=== PATIENT | female | born 1990 | race Caucasian/White ===

== ENCOUNTER 2020-09-30 01:10 | Inpatient (IN) ==
[2020-09-30] MEDS ORDERED: OXYTOCIN 30 UNITS/500 ML BAG IV PRN ×3 (01:58→23:12)
--- NOTE | 2020-09-30 02:13 | History & Physical Report ---
Date of Service September 30, 2020 Assessment & Plan (1) Supervision of normal first : 30 y/o G1 at 39 6/7 wga w/ SROM VSS stable Fetus cat 2, but due to pt feeling lightheaded/dizzy most likely. Resolved with repositioning and O2, continue to monitor Labor - discussed expectant management vs augmenting with pitocin to start, pt would like to start pitocin. GBS neg Epidural PRN, would like to try stadol at first so that she does not have to stay in bed for duration of labor History of Present Illness Primary Care Provider: NO PCP 30 y/o G1 at 39 6/7 wga w/ CARLOS 10/01/20 by LMP 12/26/19 presents w/ c/o LOF beginning around 1245AM. Pt has been terri irregularly over the last 24 hour, had noted they worsened last evening. She moved to try to get more comfortable with ctx and had large gush of fluid at that time. Continued to leak afterward. +FM and ctx, blood tinged mucous. PNI: PATRICIA from [place] at 24 wks Past [employer] Hx: G1, pt notes likely SAB at 5wks however did not see provider for it LMP 12/26/19 No hx abnl pap no hx STIs Allergies Allergy/AdvReac Type Severity Reaction Status Date / Time No Known Allergies Allergy Verified 09/25/20 09:49 Home Medications Medication Instructions Recorded Confirmed Type docosahexaenoic acid PO 06/14/20 09/25/20 History Patient History Medical History (Updated 09/30/20 @ 02:10 by Radha Stokes MD) No pertinent past medical history Surgical History History of wisdom tooth extraction Family History (Updated 09/30/20 @ 02:11 by Radha Stokes MD) Denies family history of Clotting disorder Social History Smoking Status: Never smoker Second Hand Exposure: No; Hx Alcohol Use: No Hx Substance Use: No Preferred Language: Honduran Communication Ability: Effective Electrician Yard Required: No Beliefs That Will Affect Care: None marital status: marital status details: Hiren (25) [phone] Current Living Situation: Spouse Current Living Situation Comment: lives with , no pets current occupational status: unemployed Other Information That Helps Us Care for You: No Feels Safe at Home: Yes Safety Concerns: Feels Safe At This Time Physical Exam Constitutional: WD/WN, vitals as above no acute distress Respiratory: normal respiratory effort; no respiratory distress and no labored breathing Genitourinary: OB Exam Abdomen: + vertex (confirmed by BSUS) and + estimated weight (6.5-7lbs) Manual OB Exam: + cervical dilation (1.5), + cervical effacement 70%, + station -2 and + amniotic fluid (+nitrazine, pooling, ferning) clear OB Exam Monitor Tracing: + external FHT monitor used, + external uterine monitor used and + category II (140/mod/+accel/+large decel noted on admission resolved with O2, reposition) Results & Data ([facility]) Vital Signs (Past 12 Hours) Vital Signs Temp Pulse Resp BP 09/30/20 01:27 99.0 F 18 09/30/20 01:25 90 128/71 Laboratory Results PNL: Blood Type & RH O+ Antibody Screen NEG HCT/HGB 37.5%/12.7 Platelets 296 Pap Test Negative Chlamydia Negative Gonorrhea Negative Rubella Immune RPR Non-reactive Urine Culture/Screen No growth HBsAg Negative -Hep C Ab Negative HIV Non-reactive MCV 91 Panorama (03/22/2020) Low risk female 07/12: Glucola-100 GBS neg COVID neg 09/18 ant plac Code Status & VTE Plan VTE Prophylaxis Plan VTE Prophylaxis will be ordered: Yes Coding Level of Care Code None Diagnoses Supervision of normal first Z34.00
[2020-09-30 02:28] LABS: Hematocrit (blood only) 32.5 % (37-47); Hemoglobin 11.3 g/dL (12.0-16.0); Mean Corpuscular Hemoglobin 32.2 pg (25-34); Mean Corpuscular Hgb Conc 34.8 g/dL (32-36); Mean Corpuscular Volume 92.6 fL (80-100); Mean Platelet Volume 9.2 fL (7.4-10.4); Platelet Count 218 K/uL (130-400); RDW Coefficient of Variation 12.8 % (11.5-14.5); RDW Standard Deviation 42.9 fL (36.4-46.3); Red Blood Count 3.51 M/uL (4.2-5.4); White Blood Count 13.72 K/uL (4.8-10.8)
[2020-09-30] MEDS: LACTATED RINGER'S 1,000 ML IV PRN ×4 (02:38→17:05)
[2020-09-30] MEDS ORDERED: SODIUM CHLORIDE 0.9% INJ 10 ML VIAL ONE (02:47)
[2020-09-30] MEDS ORDERED: ePHEDrine sulfate 50 MG/ML AMP ONE (02:47)
[2020-09-30] MEDS ORDERED: fentaNYL 2MCG/ML ROPIVACAINE 1.25MG/ML 100 ML BAG EPI ONE (02:48)
[2020-09-30] MEDS ORDERED: BUPIVACAINE 0.25% 30 ML VIAL ONE (02:48)
[2020-09-30] MEDS ORDERED: fentaNYL citrate 100 MCG/2 ML VIAL ONE ×2 (02:48→19:21)
[2020-09-30] MEDS ORDERED: ePHEDrine sulfate 50 MG/ML AMP IV PRN ×2 (03:15→19:07)
[2020-09-30] MEDS ORDERED: diphenhydrAMINE 50 MG/ML VIAL IV PRN (03:15)
[2020-09-30] MEDS ORDERED: NALOXONE HCL 1 MG in SODIUM CHLORIDE 0.9% 1000ML 1,000 ML IV PRN (03:15)
[2020-09-30] MEDS ORDERED: ONDANSETRON INJ 2 MG/ML 2 ML VIAL IV PRN ×2 (03:15→19:07)
[2020-09-30] MEDS ORDERED: NALOXONE HCL 0.4 MG/1 ML VIAL/CARP IV PRN (03:15)
--- NOTE | 2020-09-30 03:19 | Anesthesiology Consultation ---
Date of Service September 30, 2020 Covid 19 negative on 09/18/20. Assessment & Plan Chart Review Chart Review: Patient NOT seen in Pre Admission Testing and Acceptable Risk for Labor Epidural Consults Requested none ASA ASA2 Proposed Anesthesia Anesthesia Type: Labor Epidural and CSE Risk / Benefits Reviewed With: PT / POA / Parent / Guardian, Accepts Plan and Informed Consent Obtained History Height/Weight Height: 5 ft 4 in Weight: 73.482 kg Allergies Allergy/AdvReac Type Severity Reaction Status Date / Time No Known Allergies Allergy Verified 09/25/20 09:49 Medications Home Medications Medication Instructions Recorded Confirmed Last Taken no.144-folic acid 1 tab PO DAILY 09/30/20 09/30/20 09/29/20 [] Active Medications Generic Name Dose Route Start Last Admin Trade Name Freq PRN Reason Stop Dose Admin Lactated Ringer's 1,000 mls @ 125 mls/hr 09/30/20 01:58 09/30/20 02:38 Lr IV 10/02/20 01:57 999 mls/hr .Q8H PRN Administration L&D Protocol Protocol NPO Date Last Intake of Fluids: 09/29/20 Time Last Intake of Fluids: 23:59 Date Last Intake of Solids: 09/29/20 Time Last Intake of Solids: 23:59 Past Medical History Medical History No pertinent past medical history Exercise / Class Metabolic Activity II 4-5 Yardwork/Stairs/Walk up hill Past Family History Family History Denies family history of Clotting disorder Past Surgical History Surgical History History of wisdom tooth extraction Past Anesthesia History No Hx of Anesthesia Complications and No Family Hx of Anesthesia Complications History of PONV No Hx of PONV and No Hx of Motion Sickness Social History Smoking Status: Never smoker Hx Alcohol Use: No Hx Substance Use: No Review of Systems no chest pain or sob Physical Exam Vital Signs Last Vital Signs Temp 37.2 C 09/30/20 01:27 Pulse 96 H 09/30/20 03:15 Resp 18 09/30/20 01:27 BP 128/71 09/30/20 01:25 Pulse Ox 100 09/30/20 03:15 ENMT Mouth: no TMJ abnormality Thyromental Distance: > or= 3.5 Finger Breadths Mallampati Class: II Neck normal visual inspection Respiratory normal respiratory effort Auscultation: lungs clear to auscultation bilaterally Cardiovascular Rate/Rhythm: regular rate and regular rhythm Musculoskeletal Spine: normal cervical ROM Neurologic moves all extremities Psychiatric Orientation: alert and oriented x 3 Testing Laboratory Results 09/30/20 02:17
--- NOTE | 2020-09-30 07:37 | Labor Progress Brief Note ---
Date of Service September 30, 2020 Subjective Comfortable w/ epidural Assessment & Plan (1) Supervision of normal first : 30 y/o G1 at 39 6/7 wga w/ SROM VSS stable Fetus cat 1 Labor - pit per protocol, cont augmentation GBS neg Epidural in place Admission and Anticipated Discharge Date Admission Date: September 30, 2020 Physical Exam Constitutional: WD/WN, vitals as above no acute distress Respiratory: normal respiratory effort; no respiratory distress and no labored breathing Genitourinary: OB Exam Abdomen: + vertex (confirmed by BSUS) Manual OB Exam: + cervical dilation 4 cm, + cervical effacement 70% and + station -1 OB Exam Monitor Tracing: + external FHT monitor used, + external uterine monitor used (q3-5 min), + category I (135/mod/+accel/-decel) and + category II (140/mod/+accel/+large decel noted on admission resolved with O2, reposition) Results & Data ([facility]) Vital Signs (Past 12 Hours) Vital Signs Temp Pulse Resp BP Pulse Ox 09/30/20 07:32 74 97 09/30/20 07:30 76 92/49 L 09/30/20 07:27 76 97 09/30/20 07:22 73 97 09/30/20 07:17 79 98 09/30/20 07:16 82 98/54 L 09/30/20 07:12 111 H 98 09/30/20 07:07 75 99 09/30/20 07:02 99.0 F 88 20 100 09/30/20 07:01 82 98/49 L 09/30/20 06:57 76 96 09/30/20 06:52 74 96 09/30/20 06:47 71 98 09/30/20 06:45 78 97/56 L 09/30/20 06:42 72 96 09/30/20 06:37 71 97 09/30/20 06:32 72 98 09/30/20 06:30 77 98/53 L 09/30/20 06:27 72 95 09/30/20 06:22 74 96 09/30/20 06:17 72 96 09/30/20 06:16 74 95/52 L 09/30/20 06:12 71 96 09/30/20 06:07 74 97 09/30/20 06:02 71 96 09/30/20 06:01 72 92/50 L 09/30/20 05:57 68 96 09/30/20 05:52 70 96 09/30/20 05:47 71 95 09/30/20 05:45 72 98/59 L 09/30/20 05:42 65 95 09/30/20 05:40 57 L 94 09/30/20 05:37 47 L 98 09/30/20 05:32 105 H 98 09/30/20 05:30 98.6 F 79 18 96/55 L 09/30/20 05:27 93 H 96 09/30/20 05:23 79 94 09/30/20 05:22 81 94 09/30/20 05:17 76 95 09/30/20 05:15 82 95/51 L 94 09/30/20 05:12 77 96 09/30/20 05:07 80 97 09/30/20 05:02 77 97 09/30/20 04:57 81 95/51 L 97 09/30/20 04:52 79 97/52 L 96 09/30/20 04:47 78 98/54 L 97 09/30/20 04:42 80 94/51 L 96 09/30/20 04:38 76 97/51 L 09/30/20 04:37 86 96 09/30/20 04:32 76 91/48 L 97 09/30/20 04:31 88 94 09/30/20 04:27 81 92/52 L 96 09/30/20 04:22 92 H 98/55 L 96 09/30/20 04:17 88 96/50 L 96 09/30/20 04:14 79 94 09/30/20 04:12 84 94/54 L 95 09/30/20 04:07 83 103/55 L 95 09/30/20 04:02 99 H 99/52 L 97 09/30/20 03:57 80 105/51 L 97 09/30/20 03:54 90 98/51 L 09/30/20 03:52 83 96 09/30/20 03:47 83 97 09/30/20 03:46 88 102/51 L 09/30/20 03:44 75 110/55 L 09/30/20 03:42 84 108/53 L 97 09/30/20 03:41 97 H 119/55 L 09/30/20 03:38 86 126/56 L 09/30/20 03:37 94 H 128/58 L 98 09/30/20 03:34 82 94/53 L 09/30/20 03:33 80 99/51 L 09/30/20 03:32 77 99 09/30/20 03:30 98.4 F 86 117/67 09/30/20 03:27 103 H 98 09/30/20 03:22 122 H 99 09/30/20 03:15 96 H 100 09/30/20 01:27 99.0 F 18 09/30/20 01:25 99.0 F 90 18 128/71 Coding Level of Care Code None Diagnoses Supervision of normal first Z34.00
--- NOTE | 2020-09-30 10:16 | Labor Progress Brief Note ---
Date of Service September 30, 2020 Subjective Comfortable w/ epidural Assessment & Plan (1) Supervision of normal first : 30 y/o G1 at 39 6/7 wga w/ SROM VSS stable Fetus cat 1 Labor - pit per protocol, cont augmentation. Progressing nicely GBS neg Epidural in place Admission and Anticipated Discharge Date Admission Date: September 30, 2020 Physical Exam Constitutional: WD/WN, vitals as above no acute distress Respiratory: normal respiratory effort; no respiratory distress and no labored breathing Genitourinary: Manual OB Exam: + cervical dilation (5-6), + cervical effacement 90% and + station 0 OB Exam Monitor Tracing: + external FHT janny tor used, + external uterine monitor used (q3-5 min) and + category I (125/mod/+accel/-decel) Results & Data ([facility]) Vital Signs (Past 12 Hours) Vital Signs Temp Pulse Resp BP Pulse Ox 09/30/20 10:12 74 99 09/30/20 10:07 81 99 09/30/20 10:03 111 H 91/48 L 09/30/20 10:02 101 H 99 09/30/20 09:57 94 H 100 09/30/20 09:52 101 H 100 09/30/20 09:47 69 100 09/30/20 09:46 82 114/55 L 09/30/20 09:42 71 100 09/30/20 09:37 76 98 09/30/20 09:32 74 98 09/30/20 09:31 75 106/59 L 09/30/20 09:29 20 09/30/20 09:27 79 97 09/30/20 09:22 81 97 09/30/20 09:17 74 96 09/30/20 09:16 73 107/58 L 09/30/20 09:12 78 97 09/30/20 09:07 71 98 09/30/20 09:02 76 92/51 L 97 09/30/20 08:59 18 09/30/20 08:57 112 H 98 09/30/20 08:52 88 98 09/30/20 08:47 80 98 09/30/20 08:45 81 101/59 L 09/30/20 08:42 75 97 09/30/20 08:37 78 97 09/30/20 08:32 90 98/52 L 99 09/30/20 08:29 18 09/30/20 08:27 84 96 09/30/20 08:22 75 96 09/30/20 08:17 77 96 09/30/20 08:16 74 96/51 L 09/30/20 08:12 78 96 09/30/20 08:07 76 96 09/30/20 08:02 77 97 09/30/20 08:01 78 92/54 L 09/30/20 07:59 20 09/30/20 07:57 73 97 09/30/20 07:52 76 95 09/30/20 07:47 79 95 09/30/20 07:46 71 90/49 L 09/30/20 07:45 79 94 09/30/20 07:42 73 96 09/30/20 07:37 76 95 09/30/20 07:32 74 97 09/30/20 07:30 76 20 92/49 L 09/30/20 07:27 76 97 09/30/20 07:22 73 97 09/30/20 07:17 79 98 09/30/20 07:16 82 98/54 L 09/30/20 07:12 111 H 98 09/30/20 07:07 75 99 09/30/20 07:02 99.0 F 88 20 100 09/30/20 07:01 82 98/49 L 09/30/20 06:57 76 96 09/30/20 06:52 74 96 09/30/20 06:47 71 98 09/30/20 06:45 78 97/56 L 09/30/20 06:42 72 96 09/30/20 06:37 71 97 09/30/20 06:32 72 98 09/30/20 06:30 77 98/53 L 09/30/20 06:27 72 95 09/30/20 06:22 74 96 09/30/20 06:17 72 96 09/30/20 06:16 74 95/52 L 09/30/20 06:12 71 96 09/30/20 06:07 74 97 09/30/20 06:02 71 96 09/30/20 06:01 72 92/50 L 09/30/20 05:57 68 96 09/30/20 05:52 70 96 09/30/20 05:47 71 95 09/30/20 05:45 72 98/59 L 09/30/20 05:42 65 95 09/30/20 05:40 57 L 94 09/30/20 05:37 47 L 98 09/30/20 05:32 105 H 98 09/30/20 05:30 98.6 F 79 18 96/55 L 09/30/20 05:27 93 H 96 09/30/20 05:23 79 94 09/30/20 05:22 81 94 09/30/20 05:17 76 95 09/30/20 05:15 82 95/51 L 94 09/30/20 05:12 77 96 09/30/20 05:07 80 97 09/30/20 05:02 77 97 09/30/20 04:57 81 95/51 L 97 09/30/20 04:52 79 97/52 L 96 09/30/20 04:47 78 98/54 L 97 09/30/20 04:42 80 94/51 L 96 09/30/20 04:38 76 97/51 L 09/30/20 04:37 86 96 09/30/20 04:32 76 91/48 L 97 09/30/20 04:31 88 94 09/30/20 04:27 81 92/52 L 96 09/30/20 04:22 92 H 98/55 L 96 09/30/20 04:17 88 96/50 L 96 09/30/20 04:14 79 94 09/30/20 04:12 84 94/54 L 95 09/30/20 04:07 83 103/55 L 95 09/30/20 04:02 99 H 99/52 L 97 09/30/20 03:57 80 105/51 L 97 09/30/20 03:54 90 98/51 L 09/30/20 03:52 83 96 09/30/20 03:47 83 97 09/30/20 03:46 88 102/51 L 09/30/20 03:44 75 110/55 L 09/30/20 03:42 84 108/53 L 97 09/30/20 03:41 97 H 119/55 L 09/30/20 03:38 86 126/56 L 09/30/20 03:37 94 H 128/58 L 98 09/30/20 03:34 82 94/53 L 09/30/20 03:33 80 99/51 L 09/30/20 03:32 77 99 09/30/20 03:30 98.4 F 86 117/67 09/30/20 03:27 103 H 98 09/30/20 03:22 122 H 99 09/30/20 03:15 96 H 100 09/30/20 01:27 99.0 F 18 09/30/20 01:25 99.0 F 90 18 128/71 Coding Level of Care Code None Diagnoses Supervision of normal first Z34.00
[2020-09-30] MEDS: fentaNYL 2MCG/ML ROPIVACAINE 1.25MG/ML 100 ML BAG EPI PRN ×2 (10:44→16:03)
--- NOTE | 2020-09-30 13:22 | Labor Progress Brief Note ---
Date of Service September 30, 2020 Subjective Comfortable w/ epidural, feeling more pressure. Assessment & Plan (1) Supervision of normal first : 30 y/o G1 at 39 6/7 wga w/ SROM VSS stable Fetus cat 1 Labor - pit per protocol, cont augmentation. Will reposition to help ant lip GBS neg Epidural in place Admission and Anticipated Discharge Date Admission Date: September 30, 2020 Physical Exam Constitutional: WD/WN, vitals as above no acute distress Respiratory: normal respiratory effort; no respiratory distress and no labored breathing Genitourinary: OB Exam Abdomen: + vertex (confirmed by BSUS) Manual OB Exam: + cervical dilation (9.5 w/ anterior lip), + cervical effacement 90% and + station + 1 OB Exam Monitor Tracing: + external FHT monitor used, + external uterine monitor used (q3 min) and + category I (135/mod/+accel/-decel) Results & Data ([facility]) Vital Signs (Past 12 Hours) Vital Signs Temp Pulse Resp BP Pulse Ox 09/30/20 13:17 112 H 93 09/30/20 13:15 92 H 108/54 L 09/30/20 13:12 91 H 100 09/30/20 13:07 78 100 09/30/20 13:02 73 100 09/30/20 13:00 74 110/59 L 09/30/20 12:57 76 100 09/30/20 12:52 78 100 09/30/20 12:47 76 100 09/30/20 12:46 75 105/55 L 09/30/20 12:42 92 H 100 09/30/20 12:37 73 100 09/30/20 12:32 89 109/55 L 100 09/30/20 12:29 20 09/30/20 12:27 78 100 09/30/20 12:22 77 100 09/30/20 12:17 79 100 09/30/20 12:15 72 110/60 09/30/20 12:12 82 100 09/30/20 12:07 89 100 09/30/20 12:02 75 100 09/30/20 12:00 73 111/56 L 09/30/20 11:59 20 09/30/20 11:57 75 100 09/30/20 11:52 80 100 09/30/20 11:47 72 100 09/30/20 11:46 77 110/59 L 09/30/20 11:42 74 99 09/30/20 11:37 77 100 09/30/20 11:32 77 100 09/30/20 11:30 74 107/59 L 09/30/20 11:29 20 09/30/20 11:27 80 100 09/30/20 11:22 88 98 09/30/20 11:17 77 99 09/30/20 11:16 74 106/61 09/30/20 11:12 74 100 09/30/20 11:07 79 100 09/30/20 11:02 80 100 09/30/20 11:01 77 107/58 L 09/30/20 10:59 99.3 F 20 09/30/20 10:57 81 100 09/30/20 10:52 73 100 09/30/20 10:47 74 100 09/30/20 10:45 83 100/55 L 09/30/20 10:42 79 100 09/30/20 10:37 77 99 09/30/20 10:32 73 99 09/30/20 10:31 78 99/52 L 09/30/20 10:29 20 09/30/20 10:27 73 99 09/30/20 10:22 87 100 09/30/20 10:17 80 100 09/30/20 10:15 75 99/58 L 09/30/20 10:12 74 99 09/30/20 10:07 81 99 09/30/20 10:03 111 H 91/48 L 09/30/20 10:02 101 H 99 09/30/20 09:59 20 09/30/20 09:57 94 H 100 09/30/20 09:52 101 H 100 09/30/20 09:47 69 100 09/30/20 09:46 82 114/55 L 09/30/20 09:42 71 100 09/30/20 09:37 76 98 09/30/20 09:32 74 98 09/30/20 09:31 75 106/59 L 09/30/20 09:29 20 09/30/20 09:27 79 97 09/30/20 09:22 81 97 09/30/20 09:17 74 96 09/30/20 09:16 73 107/58 L 09/30/20 09:12 78 97 12/13/20 09:07 71 98 09/30/20 09:02 76 92/51 L 97 20 08:59 18 09/30/20 08:57 112 H 98 09/30/20 08:52 88 98 09/30/20 08:47 80 98 09/30/20 08:45 81 101/59 L 09/30/20 08:42 75 97 09/30/20 08:37 78 97 09/30/20 08:32 90 98/52 L 99 09/30/20 08:29 18 09/30/20 08:27 84 96 20 08:22 75 96 09/30/20 08:17 77 96 09/30/20 08:16 74 96/51 L 09/30/20 08:12 78 96 09/30/20 08:07 76 96 09/30/20 08:02 77 97 09/30/20 08:01 78 92/54 L 09/30/20 07:59 20 09/30/20 07:57 73 97 09/30/20 07:52 76 95 09/30/20 07:47 79 95 20 07:46 71 90/49 L 09/30/20 07:45 79 94 09/30/20 07:42 73 96 20 07:37 76 95 09/30/20 07:32 74 97 09/30/20 07:30 76 20 92/49 L 09/30/20 07:27 76 97 20 07:22 73 97 09/30/20 07:17 79 98 20 07:16 82 98/54 L 09/30/20 07:12 111 H 98 09/30/20 07:07 75 99 09/30/20 07:02 99.0 F 88 20 100 20 07:01 82 98/49 L 20 06:57 76 96 20 06:52 74 96 20 06:47 71 98 20 06:45 78 97/56 L 20 06:42 72 96 20 06:37 71 97 20 06:32 72 98 20 06:30 77 98/53 L 20 06:27 72 95 09/30/20 06:22 74 96 09/30/20 06:17 72 96 09/30/20 06:16 74 95/52 L 09/30/20 06:12 71 96 09/30/20 06:07 74 97 09/30/20 06:02 71 96 09/30/20 06:01 72 92/50 L 09/30/20 05:57 68 96 09/30/20 05:52 70 96 09/30/20 05:47 71 95 09/30/20 05:45 72 98/59 L 09/30/20 05:42 65 95 09/30/20 05:40 57 L 94 09/30/20 05:37 47 L 98 09/30/20 05:32 105 H 98 09/30/20 05:30 98.6 F 79 18 96/55 L 09/30/20 05:27 93 H 96 09/30/20 05:23 79 94 09/30/20 05:22 81 94 09/30/20 05:17 76 95 09/30/20 05:15 82 95/51 L 94 09/30/20 05:12 77 96 09/30/20 05:07 80 97 09/30/20 05:02 77 97 09/30/20 04:57 81 95/51 L 97 09/30/20 04:52 79 97/52 L 96 09/30/20 04:47 78 98/54 L 97 09/30/20 04:42 80 94/51 L 96 09/30/20 04:38 76 97/51 L 09/30/20 04:37 86 96 09/30/20 04:32 76 91/48 L 97 09/30/20 04:31 88 94 09/30/20 04:27 81 92/52 L 96 09/30/20 04:22 92 H 98/55 L 96 09/30/20 04:17 88 96/50 L 96 09/30/20 04:14 79 94 09/30/20 04:12 84 94/54 L 95 09/30/20 04:07 83 103/55 L 95 09/30/20 04:02 99 H 99/52 L 97 09/30/20 03:57 80 105/51 L 97 09/30/20 03:54 90 98/51 L 09/30/20 03:52 83 96 09/30/20 03:47 83 97 09/30/20 03:46 88 102/51 L 09/30/20 03:44 75 110/55 L 09/30/20 03:42 84 108/53 L 97 09/30/20 03:41 97 H 119/55 L 09/30/20 03:38 86 126/56 L 09/30/20 03:37 94 H 128/58 L 98 09/30/20 03:34 82 94/53 L 09/30/20 03:33 80 99/51 L 09/30/20 03:32 77 99 09/30/20 03:30 98.4 F 86 117/67 09/30/20 03:27 103 H 98 09/30/20 03:22 122 H 99 09/30/20 03:15 96 H 100 09/30/20 01:27 99.0 F 18 09/30/20 01:25 99.0 F 90 18 128/71 Coding Level of Care Code None Diagnoses Supervision of normal first Z34.00
[2020-09-30] MEDS ORDERED: MINERAL OIL 30 ML UDC ONE (17:22)
[2020-09-30] MEDS ORDERED: PHENYLEPHRINE 100MCG/ML 5ML SYR IV PRN (19:07)
[2020-09-30] MEDS ORDERED: HYDROmorphone INJ 1 MG/ML SYRINGE IV PRN (19:07)
[2020-09-30] MEDS ORDERED: ATROPINE SULFATE 0.1 MG/ML 10ML SYR IV PRN (19:07)
[2020-09-30] MEDS ORDERED: fentaNYL citrate 100 MCG/2 ML VIAL IV PRN (19:07)
[2020-09-30] MEDS ORDERED: LABETALOL HCL IV 5 MG/ML 20ML IV PRN (19:07)
--- NOTE | 2020-09-30 19:10 | Anesthesiology Consultation ---
Date of Service September 30, 2020 The patient is undergoing a cervical laceration repair in the OR. She is known to me as I placed her epidural prior to delivery. Assessment & Plan Chart Review Chart Review: Acceptable Risk for Surgery and Patient NOT seen in Pre Admission Testing Consults Requested none ASA ASA2 Proposed Anesthesia Anesthesia Type: MAC Epidural Risk / Benefits Reviewed With: PT / POA / Parent / Guardian, Accepts Plan and Informed Consent Obtained History Surgery Operation Date: 09/30/20 19:00 Proposed Procedures p Labor Delivery Repair Vaginal Laceration - Radha Stokes MD Height/Weight Height: 5 ft 4 in Weight: 73.482 kg Allergies Allergy/AdvReac Type Severity Reaction Status Date / Time No Known Allergies Allergy Verified 09/25/20 09:49 Medications Home Medications Medication Instructions Recorded Confirmed Last Taken no.144-folic acid 1 tab PO DAILY 09/30/20 09/30/20 09/29/20 [] Active Medications Generic Name Dose Route Start Last Admin Trade Name Freq PRN Reason Stop Dose Admin Oxytocin 30 units in 500 mls @ 333.333 mls/hr 09/30/20 01:58 09/30/20 18:30 Pitocin IV 10/30/20 01:57 Infused .Q1H30M PRN Titration Bleeding Control Protocol 20 UNITS/HR Lactated Ringer's 1,000 mls @ 125 mls/hr 09/30/20 01:58 09/30/20 19:03 Lr IV 10/02/20 01:57 125 mls/hr .Q8H PRN Infusion L&D Protocol Protocol Oxytocin 30 units in 500 mls @ 999 mls/hr 09/30/20 02:13 09/30/20 18:00 Pitocin IV 10/02/20 02:12 Infused .Q31M PRN Titration Labor Induction/Augmentation Protocol 59.94 UNITS/HR Ropivacaine 100 ml 09/30/20 03:15 09/30/20 16:03 Fentanyl 2mcg/Ml Ropivacaine 1.25mg/Ml 100 Ml Bag EPI 10/01/20 03:14 100 ml PRN PRN Administration Pain R/T Labor Protocol NPO Date Last Intake of Fluids: 09/29/20 Time Last Intake of Fluids: 23:59 Date Last Intake of Solids: 09/29/20 Time Last Intake of Solids: 23:59 Past Medical History Medical History No pertinent past medical history Exercise / Class Metabolic Activity II 4-5 Yardwork/Stairs/Walk up hill Past Family History Family History Denies family history of Clotting disorder Past Surgical History Surgical History History of wisdom tooth extraction Past Anesthesia History No Hx of Anesthesia Complications and No Family Hx of Anesthesia Complications Social History Smoking Status: Never smoker Hx Alcohol Use: No Hx Substance Use: No Review of Systems no chest pain or sob Physical Exam Vital Signs Last Vital Signs Temp 37.5 C 09/30/20 18:48 Pulse 76 09/30/20 19:07 Resp 18 09/30/20 19:03 BP 112/59 L 09/30/20 19:03 Pulse Ox 97 09/30/20 19:07 ENMT Mouth: no TMJ abnormality Thyromental Distance: > or= 3.5 Finger Breadths Mallampati Class: II Neck normal visual inspection Respiratory normal respiratory effort Auscultation: lungs clear to auscultation bilaterally Cardiovascular Rate/Rhythm: regular rate and regular rhythm Musculoskeletal Spine: normal cervical ROM Neurologic moves all extremities Psychiatric Orientation: alert and oriented x 3 Testing Laboratory Results 09/30/20 02:17
--- NOTE | 2020-09-30 19:13 | Delivery Summary ---
Vaginal Delivery Summary Date of Service September 30, 2020 Vaginal Delivery Summary PREOPERATIVE DIAGNOSIS: 1. Single intrauterine at 39 6/7 2. Spontaneous rupture of membranes POSTOPERATIVE DIAGNOSIS: 1. Single intrauterine at 39 6/7 2. Spontaneous rupture of membranes 3. Delivered PROCEDURE: 1. Normal spontaneous vaginal delivery. SURGEON: Radha Stokes MD ANESTHESIA: Epidural. ESTIMATED BLOOD LOSS: 400 mL FLUIDS: Continuous LR. URINE OUTPUT: None. COMPLICATIONS: None. CONDITION: Stable. INDICATIONS: 30 y/o G1 at 39 6/7 wga presented with spontaneous rupture of membranes. She opted for augmentation and so pitocin was initiated. She received an epidural for pain control. She then progressed to complete/complete/+2 station and desired to push. FINDINGS: A viable female weight pending, with Apgars of 2, 7, and 9 at 1, 5, and 10 minutes respectively. SPECIMEN: Cord gases. OPERATIVE REPORT: The patient progressed to 10 cm, 100% effaced and +2 station, pushed over intact perineum with anesthesia to deliver a viable female , weight and Apgars as above. Head of delivered in MARILYN position. No nuchal cord was present. Body and shoulders were delivered without difficulty. was noted to be nonvigorous on delivery and delayed cord clamping was deferred. Cord was clamped and cut and baby was handed off to awaiting nursery staff. Cord segment was obtained for gases, cord blood was unfortunately not obtained in the process. Placenta delivered spontaneously intact with 3-vessel cord. IV oxytocin and fundal massage were given for excellent hemostasis. Vagina, cervix, perineum, and placenta were inspected. A left vaginal/sulcal laceration was noted and repaired using 3-0 Vicryl in the usual fashion. There was noted to be continued bleeding and suspicion for a cervical laceration as uterine tone was excellent at this point. Anterior lip of the cervix was grasped with a ring forcep and attempted to be walked around the entirety. The area that was suspected to be the cause of bleeding was approximately the 5 o'clock position. 4-0 Vicryl was used to attempt to repair this area which did improve bleeding, however there was significant difficulty with visualization of the remainder of the cervix despite multiple assistants at the vagina and giving fundal. Decision was made to go to the OR for further evaluation of the cervix and possible further cervical laceration repair. Sponge and needle counts correct x2 in the delivery room. No sponges were left behind at conclusion of delivery. Patient was moved to the OR and placed in dorsal lithotomy position. Perineum and vagina were prepped using betadine. Straight catheterization was performed. A long weighted speculum and ocasio retractor were placed in the vagina. The cervix was visualized and grasped with a ring forcep. Multiple ring forceps were used to identify the entire cervix circumferentially. The previously placed stitch was identified and was hemostatic. There were no other areas of bleeding around the cervix. Remainder of the vagina and perineum were hemostatic. The patient tolerated further examination well. Mother and were stable in the immediate period [facility] Vaginal Delivery Charge Vaginal Delivery Codes: 29538 global code for the antepartum, delivery, and post-
[2020-09-30 19:26] LABS: Base Excess Cord Venous Blood -6.1 mEq/L (-7.7-1.9); CO2 Cord Arterial Blood 60 mmHg (39.1-73.5); Cord Venous Blood HCO3 20 mmol/L (18.4-26.8); Cord Venous Blood PCO2 39 mmHg (30.4-57.2); Cord Venous Blood PO2 21 mmHg (14.1-43.3); Cord Venous Blood pH 7.32 (7.20-7.44); HCO3 Cord Arterial Blood 21 mmol/L (19.7-28.5); O2 Saturation Cord Venous Bld < 60.0 % (<68); Oxygen Sat Cord Arterial Blood < 60.0 % (<60); PO2 Cord Arterial Blood 13 mmHg (4.1-31.7); pH Cord Arterial Blood 7.15 (7.1-7.38)
[2020-09-30] MEDS ORDERED: LIDOCAINE/EPINEPHRINE 2% 1:200,000 20 ML SDV ONE (19:37)
[2020-09-30] MEDS ORDERED: PROPOFOL IV EMULSION 10 MG/ML 20 ML VIAL IV ONE (19:37)
--- NOTE | 2020-09-30 19:50 | Anesthesiology Progress Note ---
Date of Service September 30, 2020 Anesthesia Post Procedure Vital Signs Vital Signs: Temp Pulse Resp BP Pulse Ox 09/30/20 19:44 74 107/53 L 98 09/30/20 19:07 76 97 09/30/20 19:03 64 18 112/59 L 09/30/20 19:02 66 97 09/30/20 18:57 69 99 09/30/20 18:52 66 97 09/30/20 18:48 37.5 C 69 20 112/57 L 09/30/20 18:47 69 98 09/30/20 18:42 67 99 09/30/20 18:37 70 99 09/30/20 18:33 68 110/56 L 09/30/20 18:32 66 100 09/30/20 18:27 64 99 09/30/20 18:22 69 99 09/30/20 18:18 68 117/59 L 09/30/20 18:17 72 99 09/30/20 18:12 72 98 09/30/20 18:07 67 96 09/30/20 18:03 65 120/58 L 09/30/20 18:02 68 96 09/30/20 17:57 72 95 09/30/20 17:52 71 96 09/30/20 17:47 70 94 09/30/20 17:42 73 96 09/30/20 17:37 72 96 09/30/20 17:32 83 95 09/30/20 17:27 83 96 09/30/20 17:22 82 97 09/30/20 17:21 81 110/59 L 09/30/20 17:17 82 165/119 H 96 09/30/20 17:16 79 92 09/30/20 17:12 76 96 09/30/20 17:07 87 92 09/30/20 17:02 79 94 09/30/20 17:01 86 115/56 L 09/30/20 17:00 100 H 91 09/30/20 16:59 20 09/30/20 16:57 93 H 93 09/30/20 16:53 87 93 09/30/20 16:52 96 H 96 09/30/20 16:48 103 H 91 09/30/20 16:47 89 96 09/30/20 16:42 117 H 93 09/30/20 16:37 83 94 12/13/20 16:36 93 H 94 20 16:32 88 109/55 L 95 20 16:30 101 H 93 20 16:29 37.9 C H 20 09/30/20 16:27 80 96 20 16:25 93 H 94 20 16:22 85 88 L 20 16:20 76 92 20 16:17 90 92 09/30/20 16:14 92 H 93 09/30/20 16:12 93 H 95 09/30/20 16:09 99 H 92 09/30/20 16:07 99 H 94 09/30/20 16:03 106 H 93 09/30/20 16:02 105 H 94 09/30/20 16:01 86 108/54 L 09/30/20 15:59 20 09/30/20 15:57 83 96 09/30/20 15:52 88 96 09/30/20 15:51 96 H 94 09/30/20 15:47 85 96 09/30/20 15:46 92 H 91 20 15:45 86 109/53 L 09/30/20 15:42 109 H 89 L 20 15:39 102 H 91 20 15:37 93 H 96 09/30/20 15:32 88 96 09/30/20 15:31 126 H 120/58 L 82 L 09/30/20 15:29 20 09/30/20 15:27 99 H 97 20 15:25 112 H 89 L 20 15:22 92 H 94 09/30/20 15:18 125 H 94 20 15:17 107 H 78 L 20 15:16 91 H 125/53 L 09/30/20 15:13 111 H 90 1320 15:12 97 H 98 20 15:07 85 98 20 15:06 105 H 91 20 15:02 109 H 123/56 L 99 20 14:59 20 09/30/20 14:58 108 H 90 09/30/20 14:57 95 H 99 20 14:52 79 100 20 14:50 37.6 C H 20 12/13/20 14:47 102 H 105/64 99 09/30/20 14:42 84 99 09/30/20 14:37 90 99 09/30/20 14:32 81 98 09/30/20 14:30 83 113/61 09/30/20 14:29 20 09/30/20 14:27 78 98 09/30/20 14:22 75 98 09/30/20 14:17 74 99 09/30/20 14:15 76 116/64 09/30/20 14:12 77 98 09/30/20 14:07 80 99 09/30/20 14:02 77 100 09/30/20 14:00 76 117/64 09/30/20 13:59 20 09/30/20 13:57 78 100 09/30/20 13:52 82 100 09/30/20 13:47 75 120/65 100 09/30/20 13:42 77 100 09/30/20 13:37 79 100 09/30/20 13:32 69 100 09/30/20 13:30 75 109/55 L 09/30/20 13:29 18 09/30/20 13:27 75 100 09/30/20 13:22 76 100 09/30/20 13:17 112 H 93 09/30/20 13:15 92 H 108/54 L 09/30/20 13:12 91 H 100 09/30/20 13:07 78 100 09/30/20 13:02 73 100 09/30/20 13:00 74 110/59 L 09/30/20 12:59 20 09/30/20 12:57 76 100 09/30/20 12:52 78 100 09/30/20 12:47 76 100 09/30/20 12:46 75 105/55 L 09/30/20 12:42 92 H 100 09/30/20 12:37 73 100 09/30/20 12:32 89 109/55 L 100 09/30/20 12:29 20 09/30/20 12:27 78 100 09/30/20 12:22 77 100 09/30/20 12:17 79 100 09/30/20 12:15 72 110/60 09/30/20 12:12 82 100 09/30/20 12:07 89 100 09/30/20 12:02 75 100 12/13/20 12:00 73 111/56 L 09/30/20 11:59 20 09/30/20 11:57 75 100 09/30/20 11:52 80 100 09/30/20 11:47 72 100 09/30/20 11:46 77 110/59 L 09/30/20 11:42 74 99 09/30/20 11:37 77 100 09/30/20 11:32 77 100 09/30/20 11:30 74 107/59 L 09/30/20 11:29 20 09/30/20 11:27 80 100 09/30/20 11:22 88 98 09/30/20 11:17 77 99 09/30/20 11:16 74 106/61 09/30/20 11:12 74 100 09/30/20 11:07 79 100 09/30/20 11:02 80 100 09/30/20 11:01 77 107/58 L 09/30/20 10:59 37.4 C 20 09/30/20 10:57 81 100 09/30/20 10:52 73 100 09/30/20 10:47 74 100 09/30/20 10:45 83 100/55 L 09/30/20 10:42 79 100 09/30/20 10:37 77 99 09/30/20 10:32 73 99 09/30/20 10:31 78 99/52 L 09/30/20 10:29 20 09/30/20 10:27 73 99 09/30/20 10:22 87 100 09/30/20 10:17 80 100 09/30/20 10:15 75 99/58 L 09/30/20 10:12 74 99 09/30/20 10:07 81 99 09/30/20 10:03 111 H 91/48 L 09/30/20 10:02 101 H 99 09/30/20 09:59 20 09/30/20 09:57 94 H 100 09/30/20 09:52 101 H 100 09/30/20 09:47 69 100 09/30/20 09:46 82 114/55 L 09/30/20 09:42 71 100 09/30/20 09:37 76 98 09/30/20 09:32 74 98 09/30/20 09:31 75 106/59 L 12/13/20 09:29 20 09/30/20 09:27 79 97 09/30/20 09:22 81 97 09/30/20 09:17 74 96 09/30/20 09:16 73 107/58 L 09/30/20 09:12 78 97 09/30/20 09:07 71 98 09/30/20 09:02 76 92/51 L 97 09/30/20 08:59 37.4 C 20 09/30/20 08:57 112 H 98 09/30/20 08:52 88 98 09/30/20 08:47 80 98 09/30/20 08:45 81 101/59 L 09/30/20 08:42 75 97 09/30/20 08:37 78 97 09/30/20 08:32 90 98/52 L 99 09/30/20 08:29 18 09/30/20 08:27 84 96 09/30/20 08:22 75 96 09/30/20 08:17 77 96 09/30/20 08:16 74 96/51 L 09/30/20 08:12 78 96 09/30/20 08:07 76 96 09/30/20 08:02 77 97 09/30/20 08:01 78 92/54 L 09/30/20 07:59 20 09/30/20 07:57 73 97 09/30/20 07:52 76 95 09/30/20 07:47 79 95 09/30/20 07:46 71 90/49 L 09/30/20 07:45 79 94 09/30/20 07:42 73 96 09/30/20 07:37 76 95 09/30/20 07:32 74 97 09/30/20 07:30 76 20 92/49 L 09/30/20 07:27 76 97 20 07:22 73 97 09/30/20 07:17 79 98 09/30/20 07:16 82 98/54 L 09/30/20 07:12 111 H 98 09/30/20 07:07 75 99 09/30/20 07:02 37.2 C 88 20 100 09/30/20 07:01 82 98/49 L 09/30/20 06:57 76 96 09/30/20 06:52 74 96 09/30/20 06:47 71 98 09/30/20 06:45 78 97/56 L 09/30/20 06:42 72 96 09/30/20 06:37 71 97 09/30/20 06:32 72 98 09/30/20 06:30 77 98/53 L 09/30/20 06:27 72 95 09/30/20 06:22 74 96 09/30/20 06:17 72 96 09/30/20 06:16 74 95/52 L 09/30/20 06:12 71 96 09/30/20 06:07 74 97 09/30/20 06:02 71 96 09/30/20 06:01 72 92/50 L 09/30/20 05:57 68 96 09/30/20 05:52 70 96 09/30/20 05:47 71 95 09/30/20 05:45 72 98/59 L 09/30/20 05:42 65 95 09/30/20 05:40 57 L 94 09/30/20 05:37 47 L 98 09/30/20 05:32 105 H 98 09/30/20 05:30 37.0 C 79 18 96/55 L 09/30/20 05:27 93 H 96 09/30/20 05:23 79 94 09/30/20 05:22 81 94 09/30/20 05:17 76 95 09/30/20 05:15 82 95/51 L 94 09/30/20 05:12 77 96 09/30/20 05:07 80 97 09/30/20 05:02 77 97 09/30/20 04:57 81 95/51 L 97 09/30/20 04:52 79 97/52 L 96 09/30/20 04:47 78 98/54 L 97 09/30/20 04:42 80 94/51 L 96 09/30/20 04:38 76 97/51 L 09/30/20 04:37 86 96 09/30/20 04:32 76 91/48 L 97 09/30/20 04:31 88 94 09/30/20 04:27 81 92/52 L 96 09/30/20 04:22 92 H 98/55 L 96 09/30/20 04:17 88 96/50 L 96 09/30/20 04:14 79 94 09/30/20 04:12 84 94/54 L 95 09/30/20 04:07 83 103/55 L 95 09/30/20 04:02 99 H 99/52 L 97 09/30/20 03:57 80 105/51 L 97 09/30/20 03:54 90 98/51 L 09/30/20 03:52 83 96 09/30/20 03:47 83 97 09/30/20 03:46 88 102/51 L 09/30/20 03:44 75 110/55 L 09/30/20 03:42 84 108/53 L 97 09/30/20 03:41 97 H 119/55 L 09/30/20 03:38 86 126/56 L 09/30/20 03:37 94 H 128/58 L 98 09/30/20 03:34 82 94/53 L 09/30/20 03:33 80 99/51 L 09/30/20 03:32 77 99 09/30/20 03:30 36.9 C 86 117/67 09/30/20 03:27 103 H 98 09/30/20 03:22 122 H 99 09/30/20 03:15 96 H 100 09/30/20 01:27 37.2 C 18 09/30/20 01:25 37.2 C 90 18 128/71 Transfer of Care Handoff Completed per policy Notes Mental Status: alert / awake / arousable Patient Amnestic to Procedure: Yes Nausea / Vomiting: adequately controlled Pain: adequately controlled Airway Patency, RR, SpO2: stable & adequate BP & HR: stable & adequate Hydration State: stable & adequate Neuraxial Anesthesia: was administered and sensory block is resolving Anesthetic Complications: no major complications apparent and Pt Satisfied with anesthetic care
[2020-09-30] MEDS ORDERED: ACETAMINOPHEN 325 MG TAB PO PRN (23:12)
[2020-09-30] MEDS ORDERED: DIPHTHERIA/TETANUS/PERTUSSIS 0.5 ML SYR/VIAL IM ONE (23:12)
[2020-09-30] MEDS ORDERED: HYDROCORTISONE ACETATE 25 MG SUPP PR PRN (23:12)
[2020-09-30] MEDS ORDERED: SUPERCREAM 0.870% 15 GM JAR EXT PRN (23:12)
[2020-09-30] MEDS ORDERED: bisacodyL 10 MG SUPP PR PRN (23:12)
[2020-09-30] MEDS ORDERED: BENZOCAINE 20% AER SPR 82.5 GM CAN EXT PRN (23:12)
[2020-09-30] MEDS ORDERED: IBUPROFEN 600 MG TAB PO ONE (23:13)
[2020-09-30] MEDS ORDERED: BENZOCAINE 20% AER SPR 82.5 GM CAN EXT ONE (23:14)
[2020-10-01] MEDS: IBUPROFEN 600 MG TAB PO PRN ×2 (05:45→18:14)
--- NOTE | 2020-10-01 05:56 | Obstetrical Progress Note ---
Date of Service <Michael Gutierrez MD - Last Filed: 10/01/20 07:41> October 01, 2020 Assessment & Plan <Michael Gutierrez MD - Last Filed: 10/01/20 07:41> (1) state: Subjective <Michael Gutierrez MD - Last Filed: 10/01/20 07:41> Ambulation: ambulating normally Voiding: no voiding problems Passing Gas:: Yes Diet Tolerance:: regular diet Feeding Type:: breast feeding Doing well. States that pain went from 2-3/10 to a 0/10 currently s/p pain medication. Review of Systems Denies fever, chills, sweats Denies shortness of breath, chest pain, palpitations. Denies breast pain. Denies dysuria. Denies headache or changes in vision. Denies nausea/vomiting. Denies numbness, tingling, weakness. Physical Exam <Michael Gutierrez MD - Last Filed: 10/01/20 07:41> General: Alert, oriented. No acute distress. Cardiac: Regular rate and rhythm, no murmurs/rubs/gallops. Respiratory: Clear to auscultation bilaterally, no wheezes/rales/rhonchi. No respiratory distress. Abdomen: , soft, nontender. Uterus: Uterine fundus firm, palpable 1 cm below umbilicus. Lower Extremities: No lower extremity edema or swelling. Mild L calf soreness. Results & Data ([facility]) <Michael Gutierrez MD - Last Filed: 10/01/20 07:41> Vital Signs (Past 12 Hours) Vital Signs Temp Pulse Pulse Resp BP BP Pulse Ox 10/01/20 04:30 36.4 C L 66 16 97/66 L 10/01/20 01:00 36.7 C 68 16 115/72 09/30/20 21:54 85 18 111/54 L 09/30/20 21:32 76 99/58 L 09/30/20 21:16 72 18 87/48 L 09/30/20 21:01 94/52 L 09/30/20 20:46 91 H 18 107/49 L 09/30/20 20:35 80 18 95/46 L 09/30/20 20:11 81 94 09/30/20 20:09 84 96 09/30/20 20:06 81 92 09/30/20 20:04 88 95 09/30/20 20:02 88 99/49 L 09/30/20 19:59 97 H 99 09/30/20 19:54 76 100 09/30/20 19:49 77 100 09/30/20 19:44 37.1 C 74 18 107/53 L 98 09/30/20 19:07 76 97 09/30/20 19:03 64 18 112/59 L 09/30/20 19:02 66 97 09/30/20 18:57 69 99 09/30/20 18:52 66 97 09/30/20 18:48 37.5 C 69 20 112/57 L 09/30/20 18:47 69 98 09/30/20 18:42 67 99 09/30/20 18:37 70 99 09/30/20 18:33 68 110/56 L 09/30/20 18:32 66 100 09/30/20 18:27 64 99 09/30/20 18:22 69 99 09/30/20 18:18 68 117/59 L 09/30/20 18:17 72 99 09/30/20 18:12 72 98 09/30/20 18:07 67 96 09/30/20 18:03 65 120/58 L 09/30/20 18:02 68 96 09/30/20 17:57 72 95 Medications Administered <Radha Stokes MD - Last Filed: 10/01/20 07:55> Co-Signing Physician Notes Resident Physician Supervision Note: I interviewed and examined the patient. Discussed with Dr. Gutierrez and agree with findings and plan as documented in the note. Any exceptions or clarifications are listed here: Agree with addendum of note with Dr. Gutierrez's A/P. Bleeding is stable and CBC is appropriate this morning. Continue routine pp care. Does note bilateral calf soreness, L slightly >R. Exam is benign, legs are not swollen, tender, erythematous bilaterally and legs are symmetric. No CP or SOB. Pt did push for ~3 hours so suspect MSK related, however did instruct pt on monitoring signs of VTE and let us know if changes Documented By: Radha Stokes MD Resident Activity Tracking <Michael Gutierrez MD - Last Filed: 10/01/20 07:41> Resident Involvement: Resident Care Provided Care Provided: OB Delivery
[2020-10-01 07:13] LABS: Hemoglobin 9.6 g/dL (12.0-16.0); Mean Corpuscular Hemoglobin 33.2 pg (25-34); Mean Corpuscular Hgb Conc 35.6 g/dL (32-36); Mean Corpuscular Volume 93.4 fL (80-100); Mean Platelet Volume 9.7 fL (7.4-10.4); Platelet Count 215 K/uL (130-400); RDW Coefficient of Variation 12.9 % (11.5-14.5); RDW Standard Deviation 43.9 fL (36.4-46.3); Red Blood Count 2.89 M/uL (4.2-5.4); White Blood Count 12.94 K/uL (4.8-10.8)
[2020-10-01] MEDS: DOCUSATE SODIUM 100 MG CAP PO SCH ×2 (08:01→20:29)
[2020-10-01] MEDS: FERROUS SULFATE 325 MG TAB PO SCH (08:01)
[2020-10-01] MEDS: PRENATAL VITAMIN 1 TAB PO SCH (08:01)
[2020-10-01] MEDS ORDERED: bisacodyL 5 MG TABEC PO SCH (20:00)
--- NOTE | 2020-10-02 05:56 | Obstetrical Progress Note ---
Date of Service <Michael Gutierrez MD - Last Filed: 10/02/20 07:14> October 02, 2020 Assessment & Plan <Michael Gutierrez MD - Last Filed: 10/02/20 07:14> (1) state: 30 y/o G1 s/p PPD2 w/ minor cervical lac. stable. O+. Rubella immune. - ambulating, voiding, and tolerating reg diet. meeting PP milestones - bilat LE soreness (worse on L) likely musculoskeletal. monitoring for symptom changes. no shortness of breath. no visible swelling or erythema - continue routine care - attempting , but having difficulty w/ milk supply. documentum consultant was not in yesterday. Patient did receive assistance from nurses. - tentative d/c today Subjective <Michael Gutierrez MD - Last Filed: 10/02/20 07:14> Ambulation: ambulating normally Voiding: no voiding problems Passing Gas:: Yes Diet Tolerance:: regular diet Lochia:: Moderate Feeding Type:: bottle feeding Current Pain Level(1-10): 1 Pain is 1/10. Has some mild soreness in upper extremities as well today, attributes to sleeping position. Lower extremity soreness slightly better than yesterday, about same, worse on left. Attempted though still has milk supply issues. Review of Systems Denies fever, chills, sweats Denies shortness of breath, chest pain. Denies dysuria. Denies headache or changes in vision. Denies nausea/vomiting. Denies numbness, tingling, weakness. Physical Exam <Michael Gutierrez MD - Last Filed: 10/02/20 07:14> General: Alert, oriented. No acute distress. Cardiac: Regular rate and rhythm, no murmurs/rubs/gallops. Respiratory: Clear to auscultation bilaterally, no wheezes/rales/rhonchi. No respiratory distress. Abdomen: , soft, nontender. Uterus: Uterine fundus firm, palpable at umbilicus. Lower Extremities: 1+ LE edema. Mild L calf soreness w/ flexing of L foot. Calves do not appear erythematous or unilaterally swollen. Results & Data ([facility]) <Michael Gutierrez MD - Last Filed: 10/02/20 07:14> Vital Signs (Past 12 Hours) Vital Signs Temp Pulse Resp BP 10/02/20 00:41 36.7 C 63 18 111/63 10/01/20 21:34 36.7 C 76 18 105/69 Medications Administered <Jenise Barragan DO - Last Filed: 10/02/20 08:06> Co-Signing Physician Notes Resident Physician Supervision Note: I was present with Dr. Gutierrez during the history and exam. I discussed the case with the resident and agree with the findings and plan as documented in the note. Any exceptions or clarifications are listed here: PPD#2 doing well. DC home. Instructions reviewed. Documented By: Jenise Barragan DO
[2020-10-02] MEDS: FERROUS SULFATE 325 MG TAB PO SCH (09:08)
[2020-10-02] MEDS: PRENATAL VITAMIN 1 TAB PO SCH (09:08)
[2020-10-02] MEDS: DOCUSATE SODIUM 100 MG CAP PO SCH (09:08)
== END 2020-10-02 12:05 | disposition home or self-care (01) | DRG 807 ==
LOC: OPB 01:10 → 4S1 01:13 → 4S2 10-01 00:39

== ENCOUNTER 2022-08-14 05:38 | Inpatient (IN) ==
--- NOTE | 2022-08-08 15:19 | Anesthesiology Consultation ---
Date of Service August 08, 2022 Assessment & Plan (1) Encounter for pre-operative examination: COVID screening: Per assessment on 08/08: No known COVID-19 positive contacts or current COVID-19 related symptoms. Travel screen negative. Patient vaccinated. At surgeon discretion if preop Covid testing being done. Chart Review Chart Review: entry level staff accountant initiated History Surgery Operation Date: 08/14/22 07:30 Proposed Procedures p Section (Delivery of Baby Through Abdominal Incision) - Eugenia Meredith MD, FACOG Height/Weight Height: 5 ft 4 in Weight: 68.946 kg Allergies Allergy/AdvReac Type Severity Reaction Status Date / Time No Known Allergies Allergy Verified 08/13/22 09:36 Medications Home Medications Medication Instructions Recorded Confirmed Last Taken vitamins no.144-folic 1 tab PO QAM 09/30/20 08/13/22 09/29/20 acid 400 mcg chewable tablet () Past Medical History Medical History No known health problems Past Family History Family History Family/Other Kidney failure Other No family history of adverse response to anesthesia Denies family history of Ovarian cancer Prostate cancer Clotting disorder Myocardial infarction Breast cancer Colorectal cancer Past Surgical History Surgical History History of gynecologic surgery 09/30/[address] [facility]--cervical laceration repair after vaginal delivery History of tooth extraction History of wisdom tooth extraction Social History Smoking Status: Never smoker Do You Dip or Chew Tobacco: No Hx Alcohol Use: No Hx Substance Use: No substance use type: does not use Physical Exam Vital Signs Last Vital Signs Temp 37 C 08/14/22 07:10 Pulse 71 08/14/22 07:05 Resp 20 08/14/22 07:10 BP 120/58 L 08/14/22 07:05 Testing Laboratory Results 08/14/22 05:57
--- NOTE | 2022-08-13 21:43 | History & Physical Report ---
Date of Service August 13, 2022 Assessment & Plan (1) with 39 completed weeks gestation: (2) Breech presentation: Plan Plan to proceed with primary c/s for breech. the risks of surgery were discussed with the patient and include anesthesia, bleeding, transfusion, infection, poor wound healing, damage to surrounding stuctures with need for further surgery/hospitalization, heart attack, blood clot leg/lung, stroke, , injury to baby. Questions asked and answered. Consent reviewed and signed. History of Present Illness Chief Complaint: breech presentation Primary Care Provider: Clinton Horton III, WES patient is a 32yowf who presents at 39 0/7 weeks for primary c/s for breech presentation. Discovered at 36-37 weeks. Declines attempt at ECV. has been otherwise uncomplicated. and Delivery Plans ECV 07/30 with Shelley -Declined wanting ECV C/S SCHEDULED FOR 08/14/[address] RAMOS OB Labs: Blood Type O Positive 01/21/22 Antibody Screen NEGATIVE 01/21/22 Hemoglobin 12.0 g/dl (12.0-16.0) 06/05/22 Hematocrit 35.3 % (34.1-44.9) 06/05/22 Mean Corpuscular Volume 88.0 fL (80-100) 01/21/22 Platelet Count 284 K/uL (130-400) 01/21/22 Rubella IgG Antibody Immune (Immune) 01/21/22 Rapid Plasma Reagin Nonreactive (Nonreactive) 01/21/22 Hepatitis B Surface Antigen. NON-REACTIVE (NON-REACTIVE) 01/21/22 Hepatitis C Antibody (EIA) NON-REACTIVE (NON-REACTIVE) 01/21/22 HIV (1&2) Ag and Ab Confirmation NON-REACTIVE (NON-REACTIVE) 01/21/22 Glucose 1 Hour 50 gm Load 98 mg/dl (70-130) 06/05/22 OB Optional Labs: Chlamydia trachomatis RNA NOT DETECTED (NOT DETECTED) 01/21/22 Neisseria gonorrhoeae RNA NOT DETECTED (NOT DETECTED) 01/21/22 Labs Reviewed: declined genetics/cf/sma/afp GBS neg--akh Allergies Allergy/AdvReac Type Severity Reaction Status Date / Time No Known Allergies Allergy Verified 08/13/22 09:36 Home Medications Medication Instructions Recorded Confirmed Type vitamins no.144-folic 1 tab PO QAM 09/30/20 08/13/22 History acid 400 mcg chewable tablet () Patient History Medical History No known health problems Surgical History History of gynecologic surgery 09/30/20 @ [facility]--cervical laceration repair after vaginal delivery History of tooth extraction History of wisdom tooth extraction Family History Family/Other Kidney failure Other No family history of adverse response to anesthesia Denies family history of Ovarian cancer Prostate cancer Clotting disorder Myocardial infarction Breast cancer Colorectal cancer Social History Smoking Status: Never smoker Second Hand Exposure: No; Hx Alcohol Use: No Hx Substance Use: No Preferred Language: Amharic Communication Ability: Effective Visual Impairment: No Limitations Hearing Ability: Normal Soap Maker Required: No Beliefs That Will Affect Care: None marital status: marital status details: Hiren Lane (30) [phone] Current Living Situation: Spouse and Family Current Living Situation Comment: lives with , daughter no pets current occupational status: employed current occupation: teaches fitness classes [employer] Feels Safe at Home: Yes Childhood Exposure to Second-Hand Smoke: No Dental Care, Regularly: Yes Physical Activity Frequency: 5-6 Times per Week Seatbelt Use: always Sunscreen Use: No Assistive Devices: None OB History Past Pregnancies Del. Date GA wks Lbr Lgth wt Sex Type del Anes Place Del Prov ? Comment 09/21/19 C Aborted-Spontaneous 09/30/20 39 7lb 2.6oz F Epi dural [facility] Stokes No Physical Exam Constitutional: WD/WN, vitals as above Gastrointestinal (Abdomen): soft, gravid, nt, breech by dimitri Psychiatric: A+Ox3, euthymic affect Coding Level of Care Code None Diagnoses with 39 completed weeks gestation Z3A.39 Breech presentation O32.1XX0
[~2022-08-14 05:38] MED LIST: LACTATED RINGER'S 1,000 ML IV SCH
[2022-08-14] MEDS ORDERED: CITRIC ACID/SODIUM CITRATE 15 ML UDC PO SCH (06:00)
[2022-08-14] MEDS ORDERED: ceFAZolin 2000MG 2,000 MG/15 ML SYR IV SCH (06:00)
[2022-08-14 06:31] LABS: Basophils # (auto) 0.04 K/uL (0-0.2); Basophils % (auto) 0.4 %; Eosinophils # (auto) 0.11 K/uL (0-0.50); Hematocrit (blood only) 32.4 % (34.1-44.9); Hemoglobin 11.7 g/dl (12.0-16.0); Immature Granulocytes # (auto) 0.08 K/uL (0.00-0.02); Immature Granulocytes % (auto) 0.7 %; Lymphocytes # (auto) 2.13 K/uL (1.2-3.4); Lymphocytes % (auto) 19.3 %; Mean Corpuscular Hemoglobin 32.4 pg (25.0-34.0); Mean Corpuscular Hgb Conc 36.1 g/dL (32.0-36.0); Mean Corpuscular Volume 89.8 fL (80.0-100.0); Mean Platelet Volume 9.4 fL (9.4-12.3); Monocytes % (auto) 4.5 %; Neutrophils # (auto) 8.19 K/uL (1.4-6.5); Neutrophils % (auto) 74.1 %; Platelet Count 225 K/uL (130-400); RDW Coefficient of Variation 12.4 % (11.5-14.5); RDW Standard Deviation 40.6 fL (36.4-46.3); Red Blood Count 3.61 M/uL (3.93-5.22); White Blood Count 11.05 K/ul (4.8-10.8)
[2022-08-14] MEDS ORDERED: LACTATED RINGER'S 500 ML IV PRN (07:20)
[2022-08-14] MEDS ORDERED: NALBUPHINE HCL INJ 10 MG/ML AMP IV PRN (07:20)
[2022-08-14] MEDS ORDERED: MoRPHine SULFATE 2 MG/ML CARP IV PRN (07:20)
[2022-08-14] MEDS ORDERED: ePHEDrine sulfate 50 MG/ML AMP IV PRN (07:20)
[2022-08-14] MEDS ORDERED: MoRPHine SULFATE PF 1 MG/ML 10 ML AMP/VIAL INT SPINAL ONE (07:20)
[2022-08-14] MEDS ORDERED: NALOXONE HCL 0.4 MG/1 ML VIAL/CARP IV PRN (07:20)
[2022-08-14] MEDS ORDERED: NALOXONE HCL 1 MG in SODIUM CHLORIDE 0.9% 1000ML 1,000 ML IV PRN (07:20)
[2022-08-14] MEDS ORDERED: diphenhydrAMINE 50 MG/ML VIAL IV PRN (07:20)
[2022-08-14] MEDS ORDERED: NALOXONE HCL 0.08 MG in SYRINGE 1.8 ML IV PRN (07:20)
[2022-08-14] MEDS ORDERED: ONDANSETRON INJ 2 MG/ML 2 ML VIAL IV PRN (07:20)
[2022-08-14] MEDS ORDERED: fentaNYL citrate 100 MCG/2 ML VIAL ONE (07:22)
[2022-08-14] MEDS ORDERED: MoRPHine SULFATE PF 1 MG/ML 10 ML AMP/VIAL ONE (07:22)
[2022-08-14] MEDS ORDERED: OXYTOCIN 10 UNITS/ML 10ML VIAL ONE (07:22)
[2022-08-14] MEDS ORDERED: NO NARCOTICS OR SEDATIVES SCH (07:30)
[2022-08-14] MEDS ORDERED: SODIUM CHLORIDE 0.9% 1000ML 1,000 ML IV SCH (07:30)
[2022-08-14] MEDS ORDERED: DC INTRASPINAL MORPHINE SCH (07:30)
[2022-08-14] MEDS ORDERED: ATROPINE SULFATE 1MG/2.5ML SYR ONE (08:11)
[2022-08-14] MEDS ORDERED: ePHEDrine sulfate 50 MG/ML SYR ONE (08:11)
[2022-08-14] MEDS ORDERED: PHENYLEPHRINE 100MCG/ML 5ML SYR ONE (08:11)
[2022-08-14 08:40] LABS: Base Excess Cord Venous Blood -0.6 mEq/L (-7.7-1.9); Cord Venous Blood HCO3 28 mmol/L (18.4-26.8); Cord Venous Blood PCO2 60 mmHg (30.4-57.2); Cord Venous Blood PO2 12 mmHg (14.1-43.3); Cord Venous Blood pH 7.27 (7.20-7.44); O2 Saturation Cord Venous Bld < 60.0 % (<68)
[2022-08-14 08:42] LABS: Base Excess Cord Arterial Bld -1.5 mEq/L (-9-1.8); CO2 Cord Arterial Blood 37 mmHg (39.1-73.5); HCO3 Cord Arterial Blood 23 mmol/L (19.7-28.5); Oxygen Sat Cord Arterial Blood 63.3 % (<60); PO2 Cord Arterial Blood 27 mmHg (4.1-31.7)
[2022-08-14] MEDS ORDERED: SENNA 8.6 MG TAB PO PRN (08:57)
[2022-08-14] MEDS ORDERED: HYDROCORTISONE ACETATE 25 MG SUPP PR PRN (08:57)
[2022-08-14] MEDS ORDERED: DIPHTHERIA/TETANUS/PERTUSSIS 0.5 ML SYR/VIAL IM ONE (08:57)
[2022-08-14] MEDS ORDERED: BENZOCAINE 20% AER SPR 82.5 GM CAN EXT PRN (08:57)
[2022-08-14] MEDS ORDERED: MAGNESIUM HYDROXIDE SUSP 30 ML UDC PO PRN (08:57)
--- NOTE | 2022-08-14 08:57 | Operative Report ---
PG Post Operative Report Pre & Post Diagnosis Operation Date: 08/14/22 07:30 Pre-Op Diagnosis: Breech Presentation Post-Op Diagnosis: Breech Presentation I identified the patient and participated in the time-out.: Yes Procedure Operation Date: 08/14/22 07:30 Actual Procedures p primary low transverse Section (Delivery of Baby Through Abdominal Incision) - living male child at 0812 - Eugenia Meredith MD, FACOG Surgeon Eugenia Meredith MD, FACOG Batter Mixer Dr. Barragan Estimated Blood Loss 500 Findings Consistent with Post-Op Diagnosis lydia breech baby in LSA position, normal uterus , tubes and ovaries Fluids 1000cc Specimens none Drains walls Anesthesia Type Spinal Complications none Disposition Accompanied Patient To Recovery: Yes Disposition: L&D Indications Patient is a with persistent breech presentation. Declines ecf Description of Procedure The patient was taken to the operating room where she was identified verbally and by bracelet. She was seated on the operating table where a spinal anesthetic was placed by anesthesia. She was then placed in the supine position with a leftward tilt. A Walls catheter was placed sterilely. the patient was prepped and draped in a normal standard fashion. the anesthetic was tested and found to be adequate. A time-out was held, identifying correct patient, procedure, positioning and preoperative antibiotics. There were no concerns. A Pfannenstiel skin incision was made with a knife and taken down to the underlying layer of fascia with the knife and Bovie electrocautery. Bleeding was attended to with the Bovie. The fascia was incised in the midline with the knife and taken out laterally with scissors. The superior edge of the fascial incision was grasped, elevated and the underlying layer of rectus muscle was taken off bluntly and with scissors. In a similar fashion, the inferior edge of the fascial incision was grasped, elevated and the underlying layer of rectus muscle was taken off bluntly and with scissors. The muscles were bluntly in the midline. The peritoneum was entered bluntly. The incision was then stretched. The bladder blade was placed. The vesicouterine peritoneum was identified, entered with scissors and taken out laterally with scissors. The bladder flap was created digitally A hysterotomy incision was scored with a knife and the incision was stretched superiorly and inferiorly with the well drill operator cable tool's fingers. The operators hand was placed into the incision and the buttocks were delivered atraumatically. Using fundal pressure the legs were delivered, first the left and then the right. On delivery of the right leg, a pop was heard. this was relayed to peds. The arms were then bilaterally reduced over the body and the head was delivered with fundal pressure. No nuchal cord. The nose and mouth were bulb suctioned. The cord was clamped and cut and the was then handed off to the awaiting floor molder for drying and attention. Cord blood and segment were obtained. The placenta was Manually extracted. The uterus was exteriorized and cleared of all clot and debris with moistened laparotomy sponges. The hysterotomy incision was repaired in two layers, the first in a running locked layer, the second in an imbricating layer. One figure of eight suture needed in the right corner of the incision. Hemostasis was noted to be good. Posterior cul-de-sac was irrigated and cleared of all clot and debris. The hysterotomy incision was again inspected and found to be hemostatic. the uterus was reinteriorized. Hysterotomy incision was again inspected and found to be hemostatic. Yves was placed over the incision and right corner. Pressure was held. Hemostasis was good. Rectus muscles were reapproximated with several interrupted stitches of 0 Vicryl. The fascia was then reapproximated with 0 Vicryl starting at the edges and meeting in the midline. The subcuticular tissues were copiously irrigated and bleeding was attended to with cautery. The skin was then closed with 4-0 Vicryl in a subcuticular fashion. All sponge , lap and needle counts were correct x 2. The patient tolerated the procedure well and was taken to the recovery room in stable condition. I attest to the content of the Intraoperative Record and any orders documented therein. Any exceptions are noted below.
[2022-08-14] MEDS ORDERED: LACTATED RINGER'S 1,000 ML IV SCH (09:00)
[2022-08-14] MEDS: OXYTOCIN 20 UNITS in LACTATED RINGER'S 1,000 ML IV SCH ×2 (09:09→18:16)
--- NOTE | 2022-08-14 09:43 | Anesthesiology Progress Note ---
Date of Service August 14, 2022 Anesthesia Post Procedure Vital Signs Vital Signs: Temp Pulse Resp BP Pulse Ox 08/14/22 09:16 20 08/14/22 08:56 36.7 C 20 08/14/22 07:10 37 C 20 08/14/22 06:14 36.7 C 18 08/14/22 09:41 62 97 08/14/22 09:36 61 112/55 L 97 08/14/22 09:31 65 98 08/14/22 09:26 63 119/59 L 99 08/14/22 09:21 65 99 08/14/22 09:20 62 110/51 L 08/14/22 09:18 82 90 08/14/22 09:16 65 100 08/14/22 09:11 64 100 08/14/22 09:06 65 120/55 L 100 08/14/22 09:01 62 100 08/14/22 08:56 63 120/58 L 100 08/14/22 07:05 71 120/58 L 08/14/22 05:50 91 H 116/63 08/14/22 05:51 36.7 C 91 H 16 116/63 Pain Intensity Lower Abdomen: Pain Intensity: 0 Transfer of Care Handoff Completed per policy Notes Mental Status: alert / awake / arousable and participated in evaluation Patient Amnestic to Procedure: Yes Nausea / Vomiting: adequately controlled Pain: adequately controlled Airway Patency, RR, SpO2: stable & adequate BP & HR: stable & adequate Hydration State: stable & adequate Anesthetic Complications: no major complications apparent and Pt Satisfied with anesthetic care
[2022-08-14] MEDS: KETOROLAC 30 MG/ML VIAL IV PRN ×2 (11:08→18:34)
[2022-08-14] MEDS: SIMETHICONE 80 MG CHEW PO SCH ×2 (13:39→17:36)
[2022-08-15] MEDS: DOCUSATE SODIUM 100 MG CAP PO SCH ×3 (00:46→20:42)
[2022-08-15] MEDS: KETOROLAC 30 MG/ML VIAL IV PRN (00:46)
[2022-08-15] MEDS: SIMETHICONE 80 MG CHEW PO SCH ×5 (00:46→20:42)
[2022-08-15] MEDS ORDERED: diphenhydrAMINE Capsule 25 MG CAP PO PRN (01:20)
[2022-08-15] MEDS ORDERED: diphenhydrAMINE 50 MG/ML VIAL IV PRN (01:20)
[2022-08-15] MEDS ORDERED: MEPERIDINE HCL 50 MG/ML CARP IV PRN (01:20)
[2022-08-15] MEDS ORDERED: KETOROLAC 30 MG/ML VIAL IV PRN (01:20)
[2022-08-15] MEDS ORDERED: ONDANSETRON INJ 2 MG/ML 2 ML VIAL IV PRN (01:20)
[2022-08-15] MEDS ORDERED: PROMETHAZINE HCL 25 MG in SODIUM CHLORIDE 0.9% 50 ML IV PRN (01:20)
--- NOTE | 2022-08-15 05:51 | Obstetrical Progress Note ---
Date of Service <Berna S. DO Julio Cesar - Last Filed: 08/15/22 06:56> August 15, 2022 Assessment & Plan <Berna S. DO Julio Cesar - Last Filed: 08/15/22 06:56> (1) Status post section: Oro has be d/c, continue OOB and ambulation and then progress diet as tolerated <Eugenia Meredith MD, FACOG - Last Filed: 08/15/22 07:05> (1) Status post section: Subjective <Berna S. DO Julio Cesar - Last Filed: 08/15/22 06:56> Augusta is a 32 y/o female who is POD #1 following delivery at 39 1/7 weeks. She reports feeling well overall this morning. Moderate abdominal cramping & pain well managed on analgesics. Voiding. Tolerating meals overnight and able to ambulate some. Is passing gas, no bowel movement. Has some persistent lochia with some improvement this morning. Currently breast feeding. Review of Systems Denies fever, chills, sweats Denies shortness of breath, difficulty breathing, chest pain, palpitations, chest pressure. Denies breast pain. Denies dysuria. Denies headache or changes in vision. Physical Exam <Berna SGiuliana Harrell DO - Last Filed: 08/15/22 06:56> General: Alert, oriented. No acute distress. Cardiac: Regular rate and rhythm, no murmurs/rubs/gallops. Respiratory: Clear to auscultation bilaterally a/p, no wheezes/rales/rhonchi. No increased work of breathing. Symmetrical chest rise. No respiratory distress. Abdomen: Soft, nontender, nondistended. Uterus: Uterine fundus firm, palpable 2 cm below umbilicus. Surgical scar clean and healing well. Lower Extremities: No lower extremity edema or swelling. No deep calf pain. Viola's negative bilaterally. Results & Data ([facility]) <Berna SGiuliana Harrell DO - Last Filed: 08/15/22 06:56> Vital Signs (Past 12 Hours) Vital Signs Temp Pulse Resp BP Pulse Ox O2 Del Method 08/15/22 05:00 36.8 C 65 18 100/61 97 Room Air 08/15/22 01:00 18 98 08/15/22 00:00 18 100 08/14/22 23:00 18 100 08/14/22 23:40 36.9 C 72 18 104/64 100 Room Air 08/14/22 22:00 18 100 08/14/22 21:00 18 100 08/14/22 20:00 18 99 08/14/22 19:00 18 100 08/14/22 19:06 36.7 C 67 18 99/58 L 100 Room Air 08/14/22 18:15 20 100 <Eugenia Meredith MD, FACOG - Last Filed: 08/15/22 07:05> Co-Signing Physician Notes Resident Physician Supervision Note: I interviewed and examined the patient. Discussed with Dr. Harrell and agree with findings and plan as documented in the note. Any exceptions or clarifications are listed here: Doing well. Routine pod 1 care. Documented By: Eugenia Meredith MD, FACOG Resident Activity Tracking <Berna Harrell, - Last Filed: 08/15/22 06:56> Resident Involvement: Resident Care Provided Care Provided: OB Delivery (Post )
[2022-08-15] MEDS: IBUPROFEN 600 MG TAB PO PRN ×4 (06:53→21:12)
[2022-08-15] MEDS: oxyCODONE/ACETAMINOPHEN 5mg/325mg TAB PO PRN ×4 (06:54→21:11)
[2022-08-15 07:46] LABS: Basophils # (auto) 0.03 K/uL (0-0.2); Basophils % (auto) 0.4 %; Eosinophils # (auto) 0.13 K/uL (0-0.50); Eosinophils % (auto) 1.6 %; Hematocrit (blood only) 29.2 % (34.1-44.9); Hemoglobin 10.1 g/dl (12.0-16.0); Immature Granulocytes # (auto) 0.04 K/uL (0.00-0.02); Immature Granulocytes % (auto) 0.5 %; Lymphocytes # (auto) 1.17 K/uL (1.2-3.4); Lymphocytes % (auto) 14.4 %; Mean Corpuscular Hemoglobin 32.5 pg (25.0-34.0); Mean Corpuscular Hgb Conc 34.6 g/dL (32.0-36.0); Mean Corpuscular Volume 93.9 fL (80.0-100.0); Mean Platelet Volume 9.4 fL (9.4-12.3); Monocytes # (auto) 0.46 K/uL (0.24-0.82); Monocytes % (auto) 5.7 %; Neutrophils # (auto) 6.28 K/uL (1.4-6.5); Neutrophils % (auto) 77.4 %; Platelet Count 206 K/uL (130-400); RDW Coefficient of Variation 12.9 % (11.5-14.5); RDW Standard Deviation 43.8 fL (36.4-46.3); Red Blood Count 3.11 M/uL (3.93-5.22); White Blood Count 8.11 K/ul (4.8-10.8)
[2022-08-15] MEDS: PRENATAL VITAMIN 1 TAB PO SCH (07:56)
[2022-08-15] MEDS: FERROUS SULFATE 325 MG TAB PO SCH (07:57)
[2022-08-15] MEDS ORDERED: bisacodyL 5 MG TABEC PO SCH (20:00)
[2022-08-16] MEDS: IBUPROFEN 600 MG TAB PO PRN ×3 (02:48→12:50)
[2022-08-16] MEDS: oxyCODONE/ACETAMINOPHEN 5mg/325mg TAB PO PRN ×3 (02:48→12:50)
--- NOTE | 2022-08-16 05:47 | Obstetrical Progress Note ---
Date of Service <Berna HarrellDO - Last Filed: 08/16/22 06:20> August 16, 2022 Assessment & Plan <Berna HarrellDO - Last Filed: 08/16/22 06:20> (1) Status post section: Oro has been d/c, continue OOB and ambulation and then progress diet as tolerated <Sangeeta Ocasio MD, FACOG - Last Filed: 08/16/22 07:52> (1) Status post section: Subjective <Bernajuvenal HarrellDO - Last Filed: 08/16/22 06:20> Augusta is a 32 y/o female who is POD #2 following delivery at 39 1/7 weeks. She reports feeling well overall this morning. Moderate abdominal cramping & pain well managed on analgesics. Voiding. Tolerating meals overnight and able to ambulate some. Is passing gas, no bowel movement. Has some persistent lochia with some improvement this morning. Currently breast feeding. Review of Systems Denies fever, chills, sweats Denies shortness of breath, difficulty breathing, chest pain, palpitations, chest pressure. Denies breast pain. Denies dysuria. Denies headache or changes in vision. Physical Exam <Berna S. DO Julio Cesar - Last Filed: 08/16/22 06:20> General: Alert, oriented. No acute distress. Cardiac: Regular rate and rhythm, no murmurs/rubs/gallops. Respiratory: Clear to auscultation bilaterally a/p, no wheezes/rales/rhonchi. No increased work of breathing. Symmetrical chest rise. No respiratory distress. Abdomen: Soft, nontender, nondistended. Uterus: Uterine fundus firm, palpable 2 cm below umbilicus. Surgical scar clean and healing well. Lower Extremities: No lower extremity edema or swelling. No deep calf pain. Viola's negative bilaterally. Results & Data ([facility]) <Berna Levine DO Julio Cesar - Last Filed: 08/16/22 06:20> Vital Signs (Past 12 Hours) Vital Signs Temp Pulse Resp BP BP Pulse Ox O2 Del Method 08/15/22 23:20 36.7 C 75 18 110/67 Room Air 08/15/22 20:45 Room Air 08/15/22 20:47 36.5 C 69 18 108/66 100 Room Air <Sangeeta Ocasio MD, FACOG - Last Filed: 08/16/22 07:52> Co-Signing Physician Notes Resident Physician Supervision Note: I was present with Dr. Harrell during the history and exam. I discussed the case with the resident and agree with the findings and plan as documented in the note. Any exceptions or clarifications are listed here: stable routine care. ready to go home. instructions reviewed. script sent after checking on pa pdmp. Documented By: Sangeeta Ocasio MD, FACOG Resident Activity Tracking <Berna Harrell, DO - Last Filed: 08/16/22 06:20> Resident Involvement: Resident Care Provided Care Provided: OB Delivery (Post )
[2022-08-16 06:27] LABS: Hematocrit (blood only) 26.9 % (34.1-44.9); Hemoglobin 9.6 g/dl (12.0-16.0)
[2022-08-16] MEDS: PRENATAL VITAMIN 1 TAB PO SCH (08:00)
[2022-08-16] MEDS: SIMETHICONE 80 MG CHEW PO SCH ×2 (08:00→12:50)
[2022-08-16] MEDS: FERROUS SULFATE 325 MG TAB PO SCH (08:01)
[2022-08-16] MEDS: DOCUSATE SODIUM 100 MG CAP PO SCH (08:01)
[2022-08-16] MEDS ORDERED: bisacodyL 10 MG SUPP PR PRN (08:57)
--- NOTE | 2022-08-18 23:57 | Discharge Summary (DS) ---
DATE OF ADMISSION: 08/14/2022. DATE OF DISCHARGE: 08/16/2022. ADMISSION DIAGNOSES: 1. Breech presentation at 39 and 0/7th weeks. 2. Desires primary . DISCHARGE DIAGNOSES: 1. Breech presentation at 39 and 0/7th weeks. 2. Desires primary . PROCEDURE: Primary low transverse section. HISTORY: Augusta is a 32-year-old white female, , para , who presents at 39 and 0/ 7th weeks for primary for breech presentation. Breech was discovered at 36-37 weeks and sh e declines attempt at ECV. has been otherwise uncomplicated. For the rest of the patient' s detailed history and physical, please see her history and physical. ASSESSMENT: This is a at 39 and 0/7th weeks, who desires primary for breech. HOSPITAL COURSE: The patient was admitted, breech was confirmed by ultrasound. She then underwent a primary low transverse section without difficulty. Estimated blood loss was 500 mL. Reinaldo breech presentation of baby in left sacrum anterior position was noted. There were normal uterus, tu bes, and ovaries bilaterally. The patient's postoperative course was uncomplicated. She tolerated a regular diet, ambulated without difficulty, voided after the removal of her Oro catheter and had h er pain well controlled on oral pain medications. She was discharged home on postoperative day #2. Will return in 6 weeks for a check and was advised to call if she had any issues. She was breastfeed ing without difficulty. Job ID: [id number]
== END 2022-08-16 13:30 | disposition home or self-care (01) | DRG 788 ==
LOC: 4S1 05:38 → EDSTATUS 07:30 → 4E2 12:00
DX: Z3A.39 39 weeks gestation of pregnancy; Z37.0 Single live birth; O32.1XX0 Maternal care for breech presentation, not applicable or unspecified